=== PATIENT | female | born 1970 | race Caucasian/White ===

== ENCOUNTER 2023-04-18 11:23 | Emergency (ER) | payer OTHER ==
--- NOTE | 2023-04-18 11:51 | ED Physician Documentation ---
PD HPI ABD PAIN - Stated complaint Stated Complaint: GI - Chief complaint Chief Complaint: Abd Pain - History obtained from History obtained from: Patient - Additional information Additional information: 52-year-old woman who was having troubles with anemia and ended up having a hysterectomy mid last year. She had her hemoglobin down to 9.2 and was getting supplemental iron and ferritin infusions. Her lowest ferritin was 3 and she was feeling really terrible when it was like that. More recently after the hysterectomy her ferritin levels have been better, but she really feels that when her ferritin levels go down, even a month ago when it was 22 she says she was symptomatic and developed brain fog and confusion from it. She been getting Feraheme infusions in the clinic and was called prior to arrival from the clinic today as she was feeling worse with some abdominal pain and bloating. She had already received her Feraheme. She has chronic constipation from the iron. She also has celiac disease and tries to avoid all gluten of course. No other history of GI issues. She is seeing GI for this next month. 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: Ovarian cysts, Other : None HEENT: None Psych: None Musculoskeletal: None Derm: Eczema - Past Surgical History General: Appendectomy /GEOCHEMICAL LABORATORY TECHNICIAN: Tubal ligation, Hysterectomy HEENT: Myringotomy (tubes) - Present Medications Home Medications: Ambulatory Orders Medication Instructions Recorded Confirmed Magnesium Oxide [Mag-Oxide] 200 mg PO DAILY 10/19/22 04/18/23 Mecobalamin [B12 Active] 1,000 mg PO DAILY 10/19/22 04/18/23 Albuterol Sulf [Ventolin Hfa 1 - 2 puffs INH Q4HR PRN 04/18/23 04/18/23 Inhaler] - Allergies Allergies/Adverse Reactions: Allergies Allergy/AdvReac Type Severity Reaction Status Date / Time iodine Allergy Hives Verified 04/18/23 11:27 - Social History Does the pt smoke?: No Smoking Status: Never smoker Does the pt drink ETOH?: Yes ETOH Use: Liquor Does the pt have substance abuse?: No - Immunizations Immunizations are current?: No Immunizations: Other immun not current - POLST Patient has POLST: No PD ED PE NORMAL - Vitals Vital signs reviewed: Yes - General General: Alert and oriented X 3, No acute distress - Neck Neck: Supple, no meningeal sign - Cardiac Cardiac: RRR, No murmur - Respiratory Respiratory: No respiratory distress, Clear bilaterally - Abdomen Abdomen: Normal bowel sounds, Other (Mild lower abdominal tenderness without surgical signs) - Neuro Neuro: Alert and oriented X 3, Normal speech Results - Vitals Vitals: Vital Signs - 24 hr 04/18/23 04/18/23 11:28 13:37 Temperature 36.5 C Heart Rate 72 72 Respiratory 18 16 Rate Blood Pressure 137/83 H 136/84 H O2 Saturation 100 98 Oxygen O2 Source Room air - Labs Labs: Laboratory Tests 04/18/23 04/18/23 04/18/23 12:00 12:00 12:00 WBC 8.2 RBC 5.09 Hgb 15.6 Hct 46.3 MCV 91.0 MCH 30.6 MCHC 33.7 RDW 13.7 Plt Count 222 MPV 10.2 Neut # (Auto) 5.5 Lymph # (Auto) 2.0 [place] # (Auto) 0.6 Eos # (Auto) 0.1 Baso # (Auto) 0.0 Absolute Nucleated RBC 0.00 Nucleated RBC % 0.0 ESR 2 Sodium 139 Potassium 3.8 Chloride 106 Carbon Dioxide 24 Anion Gap 9.0 BUN 19 Creatinine 0.8 Estimated GFR (MDRD) 75 L Glucose 92 Calcium 9.9 Iron 583 H TIBC 255 % Saturation 229 H Transferrin 182 L Total Bilirubin 0.6 AST 17 ALT 16 Alkaline Phosphatase 66 C-Reactive Protein < 0.5 Total Protein 7.0 Albumin 4.7 Globulin 2.3 Albumin/Globulin Ratio 2.0 - Rads (name of study) CT abd / pel Relevant Findings:: Final report received, EMP independent interpretation of test PD Medical Decision Making - ED course ED course: He continues 52-year-old woman always feels somewhat ill when her ferritin goes low and has these feelings again today but now associated with some lower abdominal pain. Workup in the emergency department demonstrates a normal CBC with hemoglobin of 15, ESR CRP normal/negative ruling out autoimmune/inflammatory disease, CMP grossly normal. CT of the abdomen pelvis with IV contrast read is pretty much normal, but to my eye she does have a pretty large stool burden in the pelvis probably causing pain. The patient was counseled as to the diagnosis and need for follow-up. I counseled the patient with regard to signs and symptoms that would necessitate an urgent reevaluation in the emergency department. They understand they are welcome to return at any time if worse or if not improving as expected. This document was made in part using voice recognition software. While efforts are made to proofread this documents, sound alike and grammatical errors may occur. Departure - Departure Disposition: 01 Home, Self Care Clinical Impression: Abdominal pain Qualifiers: Abdominal location: lower abdomen, unspecified Qualified Code(s): R10.30 - Lower abdominal pain, unspecified Condition: Good Record reviewed to determine appropriate education?: Yes Instructions: ED Abdominal Pain Female Non-Specific Abdominal Pain Comments: Workup today demonstrates normal blood counts, no elevation in inflammatory markers (ESR and CRP,), and normal electrolytes, kidney and liver function. CAT scan was normal with the exception of a fair amount of stool in the low colon which may be causing your lower abdominal discomfort. Take a laxative of choice, I recommend MiraLAX. Drink plenty of fluids. Continue your gluten-free diet. Follow-up with GI next month as scheduled. Return for new or worsening symptoms. Forms: PCP List
[2023-04-18 12:04] LABS: BASOPHILS % (AUTO) 0.2 %; EOSINOPHILS # (AUTO) 0.1 10^3/uL (0.0-0.7); HCT - HEMATOCRIT 46.3 % (37.0-47.0); HGB - HEMOGLOBIN 15.6 g/dL (12.0-16.0); LYMPHOCYTES % (AUTO) 24.5 %; MEAN CORPUSCULAR HEMOGLOBIN 30.6 pg (27.0-31.0); MEAN CORPUSCULAR HGB CONC 33.7 g/dL (32.0-36.0); MEAN PLATELET VOLUME 10.2 fL (7.9-10.8); MONOCYTES # (AUTO) 0.6 10^3/uL (0.0-1.0); MONOCYTES % (AUTO) 7.1 %; NEUTROPHILS # (AUTO) 5.5 10^3/uL (1.5-6.6); PLT - PLATELET COUNT 222 10^3/uL (130-450); RED BLOOD COUNT 5.09 10^6/uL (4.20-5.40); RED CELL DISTRIBUTION WIDTH 13.7 % (12.0-15.0); WHITE BLOOD COUNT 8.2 x10^3/uL (4.8-10.8)
[2023-04-18] MEDS ORDERED: iohexoL-300 100 ML VIAL ONE (12:11)
[2023-04-18 12:38] LABS: % IRON SATURATION 229 % (20-50); ALBUMIN 4.7 g/dL (3.2-5.5); ALKALINE PHOSPHATASE 66 IU/L (42-121); ALT ALANINE AMINOTRANSFERASE 16 IU/L (10-60); AST ASPARTATE AMINOTRANSFERASE 17 IU/L (10-42); BILIRUBIN,TOTAL 0.6 mg/dL (0.2-1.0); BUN - BLOOD UREA NITROGEN 19 mg/dL (6-20); CALCIUM 9.9 mg/dL (8.5-10.3); CARBON DIOXIDE - CO2 24 mmol/L (21-32); CHLORIDE 106 mmol/L (101-111); CREATININE 0.8 mg/dL (0.6-1.3); CRP - C-REACTIVE PROTEIN < 0.5 mg/dL (<0.5); GFR - MDRD 75 (>89); GLUCOSE 92 mg/dL (74-104); IRON 583 ug/dL (50-212); POTASSIUM 3.8 mmol/L (3.5-4.5); SODIUM 139 mmol/L (135-145); TOTAL IRON BINDING CAPACITY 255 ug/dL (250-450); TRANSFERRIN 182 mg/dL (203-362)
--- NOTE | 2023-04-18 14:16 | CT Report ---
PROCEDURE: Abdomen/Pelvis W INDICATIONS: IV only, abd pain CONTRAST: Omni 300 100ml TECHNIQUE: After the administration of intravenous contrast, a CT scan of the abdomen and pelvis was performed. Images were recorded and evaluated at appropriate window settings. Reformats: coronal and sagittal. F or radiation dose reduction, the following was used: automated exposure control, adjustment of mA and /or kV according to patient size. COMPARISON: None. FINDINGS: Image quality: Diagnostic. Lower chest: Unremarkable. Liver: No solid mass. Gallbladder and biliary tree: Within normal limits Spleen: No splenomegaly. Pancreas: No pancreatic ductal dilation. Adrenals: No adrenal nodule. Kidneys and ureters: No hydronephrosis. No renal cystic lesion which requires follow up. No solid mas s. Stomach, bowel and peritoneum: No bowel distension. No pathologic free fluid. Appendix is not seen. N o evidence of appendicitis. Lymph nodes: No central or retroperitoneal adenopathy. Vessels: No infrarenal aortic aneurysm. PELVIS Reproductive organs: Unremarkable. Bladder: No abnormal wall thickening, accounting for underdistention. Pelvic lymph nodes: No pelvic adenopathy by size criteria. Bones: No aggressive osseous abnormality. Other: No significant ventral or inguinal hernia. IMPRESSION: 1. No acute process. 2. Appendix not seen. No evidence of appendicitis. Reviewed by: Parveen Shell MD on 04/18/2023 2:14 PM PST Approved by: Parveen Shell MD on 04/18/2023 2:14 PM PST Station ID: [id number]
[2023-04-18] MEDS: iohexoL-300 100 ML VIAL IVP ONE (15:27)
[2023-04-18 19:27] VITALS: BP 132/76; O2SAT 100
== END 2023-04-18 14:39 | disposition home or self-care (01) ==
LOC: ED 11:23
DX: R10.30 Lower abdominal pain, unspecified (principal); T45.4X5A Adverse effect of iron and its compounds, initial encounter; K59.09 Other constipation; K90.0 Celiac disease
CPT/HCPCS: 36415; 80053; 83540; 84466; 85025; 85651; 86140; 99283

== ENCOUNTER 2023-09-07 14:05 | Outpatient (CLI) | payer OTHER ==
[2023-09-07 18:14] LABS: FERRITIN 66.6 ng/mL (11.0-306.8)
== END 2023-09-07 14:06 | disposition home or self-care (01) ==
LOC: LAB.N 14:05
PROVIDERS: ATTEND Nurse Practitioner Family
DX: K90.0 Celiac disease (principal); E61.1 Iron deficiency
CPT/HCPCS: 36415; 82728; 83540; 84466

== ENCOUNTER 2023-10-08 15:38 | Outpatient (CLI) | payer OTHER ==
[2023-10-08 18:43] LABS: HCT - HEMATOCRIT 42.5 % (37.0-47.0); HGB - HEMOGLOBIN 14.5 g/dL (12.0-16.0); MEAN CORPUSCULAR HEMOGLOBIN 31.9 pg (27.0-31.0); MEAN CORPUSCULAR HGB CONC 34.1 g/dL (32.0-36.0); MEAN CORPUSCULAR VOLUME 93.6 fL (81.0-99.0); RED BLOOD COUNT 4.54 10^6/uL (4.20-5.40); RED CELL DISTRIBUTION WIDTH 12.8 % (12.0-15.0); WHITE BLOOD COUNT 6.5 x10^3/uL (4.8-10.8)
[2023-10-08 19:16] LABS: RHEUMATOID FACTOR NEGATIVE (Negative)
[2023-10-08 19:18] LABS: CRP - C-REACTIVE PROTEIN < 0.5 mg/dL (<0.5)
[2023-10-08 19:27] LABS: THYROID STIMULATING HORMONE 2.18 uIU/mL (0.34-5.60)
== END 2023-10-08 15:39 | disposition home or self-care (01) ==
LOC: LAB.N 15:38
PROVIDERS: ATTEND Nurse Practitioner Family
DX: R21 Rash and other nonspecific skin eruption (principal); R40.0 Somnolence; M25.50 Pain in unspecified joint; M79.10 Myalgia, unspecified site; R53.83 Other fatigue; E06.3 Autoimmune thyroiditis
CPT/HCPCS: 36415; 81001; 82570; 84155; 84156; 84165; 84439; 84443; 85027; 85598; 85613; 85651; 85732; 86038; 86140; 86147; 86160; 86200; 86376; 86430; 86800; 87086